=== PATIENT | male | born 1960 | race African-American/Black ===

== ENCOUNTER 2017-09-03 21:19 | Emergency (ER) | payer OTHER ==
[~2017-09-03] VITALS: Ht 190.5 cm; Wt 104.3 kg
[2017-09-03] MEDS ORDERED: IBUPROFEN 600600 M1 PO (22:31)
[2017-09-03 23:18] VITALS: BP 151/100
== END 2017-09-03 23:20 | disposition left against medical advice (07) ==
LOC: ER 21:19
DX: Z53.21 Procedure and treatment not carried out due to patient leaving prior to being seen by health care provider (principal)

== ENCOUNTER 2017-09-08 21:05 | Emergency (ER) | payer OTHER ==
[~2017-09-08] VITALS: Ht 190.5 cm; Wt 104.3 kg
[~2017-09-08 21:05] MED LIST: IBUPROFEN 600600 M1 PO
[2017-09-08 21:09] VITALS: BP 153/103
[2017-09-08] MEDS ORDERED: NORCO 5-325 TA1 EACH PO (21:47)
[2017-09-08] MEDS ORDERED: FLEXERIL PO (22:06)
== END 2017-09-08 22:15 | disposition home or self-care (01) ==
LOC: ER 21:05
DX: S83.92XA Sprain of unspecified site of left knee, initial encounter (principal); M54.5 Low back pain; R20.2 Paresthesia of skin; I10 Essential (primary) hypertension; X58.XXXA Exposure to other specified factors, initial encounter; Y92.89 Other specified places as the place of occurrence of the external cause; Y93.89 Activity, other specified; Y99.8 Other external cause status